=== PATIENT | male | born 1995 ===

== ENCOUNTER 2016-11-18 18:41 | Emergency (ER) | payer MEDICAID, OTHER ==
[2016-11-18 19:03] VITALS: BP 131/76; PULSE 65; RESP 18; TEMP 99; O2SAT 100
--- NOTE | 2016-11-18 19:23 | ED PDOC ---
HPI: Dental Pain/Injury Time Seen by Provider: 11/18/16 19:11 Chief Complaint (Nursing): Dental Pain Chief Complaint (Provider): Dental Pain History Per: Patient History/Exam Limitations: no limitations Onset/Duration Of Symptoms: Hrs (morning of arrival) Additional Complaint(s): Mat Edmonds, 21 year old male presents to the ED on 11/18/16 with tooth pain. The patient reports that a root canal was performed on his left upper back molar. Last night he slept on it which caused him pain in the area this morning , prompting him to visit the emergency room today. He denies any fever, sore throat, ear pain, neck pain, chills, body aches, or nausea. The patient does have difficulty swallowing. Past Medical History Reviewed: Historical Data, Nursing Documentation, Vital Signs Vital Signs: Last Vital Signs Temp 99 F 11/18/16 18:58 Pulse 65 11/18/16 18:58 Resp 18 11/18/16 18:58 BP 131/76 11/18/16 18:58 Pulse Ox 100 11/18/16 18:58 - Medical History PMH: No Chronic Diseases - Family History Family History: States: Unknown Family Hx - Home Medications Home Medications: Ambulatory Orders Medication Instructions Recorded Amoxicillin 500 mg PO BID #14 tab 11/18/16 Chlorhexidine 0.12% [Peridex] 475 ml PO DAILY #1 bottle 11/18/16 - Allergies Allergies/Adverse Reactions: Allergies Allergy/AdvReac Type Severity Reaction Status Date / Time No Known Allergies Allergy Verified 11/18/16 18:58 Review of Systems ROS Statement: Except As Marked, All Systems Reviewed And Found Negative Constitutional: Negative for: Fever, Chills, Other (no body aches ) ENT: Positive for: Mouth Pain (left upper dental pain), Other (difficulty swallowing). Negative for: Ear Pain, Throat Pain Gastrointestinal: Negative for: Nausea Musculoskeletal: Negative for: Neck Pain Physical Exam - Reviewed Nursing Documentation Reviewed: Yes Vital Signs Reviewed: Yes - Physical Exam Appears: Positive for: Non-toxic, No Acute Distress Head Exam: Positive for: ATRAUMATIC, NORMOCEPHALIC ENT: Positive for: Other (infection to left upper molar (back) noted; gum is mildly irritated). Negative for: Tonsillar Swelling (tongue is not swollen; tonsils are not swollen; left cheek area is mildly swollen) Neurologic/Psych: Positive for: Alert, Oriented (x3) - ECG O2 Sat by Pulse Oximetry: 100 (RA) Pulse Ox Interpretation: Normal Medical Decision Making Medical Decision Making: Initial Impression: Patient with infection Initial Plan: * Amoxicillin * Medicated mouthwash Advised patient to follow up with dental clinic this week. Gave patient list of dental clinics in [facility]. Patient agreed to treatment plan and medication administered. Patient is stable for discharge. Scribe Attestation: Documented by Renée Persaud, acting as a scribe for Qiana Smith PA-C. Provider Scribe Attestation: All medical record entries made by the Scribe were at my direction and personally dictated by me. I have reviewed the chart and agree that the record accurately reflects my personal performance of the history, physical exam, medical decision making, and the department course for this patient. I have also personally directed, reviewed, and agree with the discharge instructions and disposition. Disposition - Clinical Impression Clinical Impression: Dental caries - Patient ED Disposition Is Patient to be Admitted: No Counseled Patient/Family Regarding: Studies Performed, Diagnosis, Need For Followup - Disposition Disposition: Routine/Home Disposition Time: 20:44 Condition: STABLE Prescriptions: Amoxicillin 500 mg PO BID #14 tab Chlorhexidine 0.12% [Peridex] 475 ml PO DAILY #1 bottle Instructions: Dental Caries (ED)
[2016-11-18] MEDS ORDERED: Acetaminophen-Codeine 300/30 mg Tab ONE (19:35)
[2016-11-18] MEDS ORDERED: Acetaminophen-Codeine 300/30 mg Tab PO ONE (19:39)
== END 2016-11-18 19:46 | disposition home or self-care (01) ==
LOC: H.ER 18:41
DX: K08.89 Other specified disorders of teeth and supporting structures (principal)